=== PATIENT | female | born 1990 | race Caucasian/White ===

== ENCOUNTER 2017-01-26 12:02 | Emergency (ER) | payer BC, OTHER ==
[~2017-01-26] VITALS: Ht 167.6 cm; Wt 77.1 kg
--- NOTE | 2017-01-26 13:52 | EKG ---
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
[2017-01-26 13:55] LABS: BASO # 0.1 x10^3/uL (0.0-0.2); BASO % 1 % (0-3); EOS % 2 % (0-3); HEMATOCRIT 43.5 % (36.0-47.0); HEMOGLOBIN 15.5 g/dL (12.0-15.5); LYMPH # 1.4 x10^3/uL (1.0-4.8); LYMPH % 19 % (24-48); MEAN CORPUSCULAR HEMOGLOBIN 32 pg (25-35); MEAN CORPUSCULAR HGB CONC 36 g/dL (31-37); MEAN CORPUSCULAR VOLUME 91 fL (79-100); MONO % 8 % (0-9); NEUT % 70 % (31-73); PLATELET COUNT 261 x10^3/uL (140-400); RED CELL DISTRIBUTION WIDTH 12.9 % (11.5-14.5); WHITE BLOOD COUNT 7.4 x10^3/uL (4.0-11.0)
[2017-01-26] MEDS ORDERED: IV NORMAL SALINE 1000ML BAG 1,000 ML IV ONE (14:00)
[2017-01-26 14:15] LABS: CALCIUM 9.5 mg/dL (8.5-10.1); CREATININE 0.5 mg/dL (0.6-1.0); GFR 146.9; POTASSIUM 3.7 mmol/L (3.5-5.1)
[2017-01-26] MEDS ORDERED: ONDANSETRON PF 4 MG/2 ML VIAL. IV ONE (14:15)
[2017-01-26 14:19] LABS: BILIRUBIN,URINE NEGATIVE (NEG); GLUCOSE,URINE NEGATIVE (NEG); NITRITE,URINE NEGATIVE (NEG); PH,URINE 6.5; PROTEIN,URINE NEGATIVE (NEG-TRACE); UROBILINOGEN,URINE 0.2 mg/dL (0.2 mg/dL)
--- NOTE | 2017-01-26 14:22 | RAD ---
Exam performed: One view chest. Indication: medical workup, dizzy and passed out at work Date of Service: 01/26/2017 3:46 PM Comparison: Prior chest x-ray from 03/11/12 Single AP upright portable view chest findings: Cardiomediastinal silhouette is within limits of normal. No acute infiltrates, effusion or pneumothorax is detected. The bony structures are normal. Impression: No acute cardiopulmonary process is detected.
[2017-01-26 14:29] LABS: BACTERIA,URINE FEW /HPF (0-FEW); RBC,URINE 0 /HPF (0-2); SQUAMOUS EPITHELIAL CELL,UR MANY /LPF; WBC,URINE 0 /HPF (0-4)
[2017-01-26 15:00] VITALS: BP 109/71
--- NOTE | 2017-01-26 15:13 | PHYS DOC ---
Past Medical History Past Medical History: No Pertinent History Past Surgical History: No Surgical History Alcohol Use: None Drug Use: None Adult General Chief Complaint Chief Complaint: SYNCOPE HPI HPI 26-year-old female with no significant past medical history with a control implant now presents the emergency department after an episode of syncope. 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 She was in that environment today and started to feel lightheaded and got very sweaty. She vomited twice and then fainted. Patient states she thinks she bumped her head but she does not have a headache currently nor does she have any painful areas or swelling of her head. Denies neck pain. This was brought in by EMS and now feels improved after IV fluids. Asymptomatic on exam. No chest pain or shortness of breath. No pleuritic pain and any time. Patient has not been ill denies fevers chills or shaking chills. No prior history of syncope or arrhythmia. Denies chest pain or palpitations Review of Systems Review of Systems Constitutional: Denies fever or chills [] Eyes: Denies change in visual acuity, redness, or eye pain [] HENT: Denies nasal congestion or sore throat [] Respiratory: Denies cough or shortness of breath [] Cardiovascular: No additional information not addressed in HPI [] GI: Denies abdominal pain, nausea, vomiting, bloody stools or diarrhea [] : Denies dysuria or hematuria [] Musculoskeletal: Denies back pain or joint pain [] Integument: Denies rash or skin lesions [] Neurologic: Denies headache, focal weakness or sensory changes [] Endocrine: Denies polyuria or polydipsia [] Current Medications Current Medications Current Medications Medications (Trade) Dose Ordered Sig/Janeth Start Time Stop Time Status Last Admin Dose Admin Ondansetron HCl (Zofran) 4 mg 1X ONCE 01/26/17 14:15 01/26/17 14:16 DC 01/26/17 14:10 4 MG Sodium Chloride 1,000 ml @ 125 mls/hr 1X ONCE 01/26/17 14:00 01/26/17 21:59 01/26/17 14:10 125 MLS/HR Allergies Allergies Allergies Coded Allergies Type Severity Reaction Last Updated Verified No Known Drug Allergies 08/20/14 No Physical Exam Physical Exam Well-appearing 18-year-old female no acute distress alert and asymptomatic normocephalic and atraumatic with no scalp tenderness or swelling. Nontender C- spine with normal painless range of motion in a nonfocal neurologic exam. Remainder of exam is benign Constitutional: Well developed, well nourished, no acute distress, non-toxic appearance. [] HENT: Normocephalic, atraumatic, bilateral external ears normal, oropharynx moist, no oral exudates, nose normal. [] Eyes: PERRLA, EOMI, conjunctiva normal, no discharge. [] Neck: Normal range of motion, no tenderness, supple, no stridor. [] Cardiovascular:Heart rate regular rhythm, no murmur [] Lungs & Thorax: Bilateral breath sounds clear to auscultation [] Abdomen: Bowel sounds normal, soft, no tenderness, no masses, no pulsatile masses. [] Skin: Warm, dry, no erythema, no rash. [] Back: No tenderness, no CVA tenderness. [] Extremities: No tenderness, no cyanosis, no clubbing, ROM intact, no edema. [] Neurologic: Alert and oriented X 3, normal motor function, normal sensory function, no focal deficits noted. [] Psychologic: Affect normal, judgement normal, mood normal. [] Current Patient Data Vital Signs Vital Signs Date Time Temp Pulse Resp B/P (MAP) Pulse Ox O2 Delivery O2 Flow Rate FiO2 01/26/17 14:00 64 16 104/72 (83) 98 Room Air Lab Values Laboratory Tests Test 01/26/17 11:30 01/26/17 12:10 01/26/17 13:45 POC Urine HCG, Qualitative Hcg negative (Negative) Urine Collection Type Void Urine Color Yellow Urine Clarity Clear Urine pH 6.5 Urine Specific Castaner 1.015 Urine Protein Negative mg/dL (NEG-TRACE) Urine Glucose (UA) Negative mg/dL (NEG) Urine Ketones (Stick) Negative mg/dL (NEG) Urine Blood Negative (NEG) Urine Nitrite Negative (NEG) Urine Bilirubin Negative (NEG) Urine Urobilinogen Dipstick 0.2 mg/dL (0.2 mg/dL) Urine Leukocyte Esterase Negative (NEG) Urine RBC 0 /HPF (0-2) Urine WBC 0 /HPF (0-4) Urine Squamous Epithelial Cells Many /LPF Urine Bacteria Few /HPF (0-FEW) Urine Mucus Marked /LPF White Blood Count 7.4 x10^3/uL (4.0-11.0) Red Blood Count 4.80 x10^6/uL (3.50-5.40) Hemoglobin 15.5 g/dL (12.0-15.5) Hematocrit 43.5 % (36.0-47.0) Mean Corpuscular Volume 91 fL (79-100) Mean Corpuscular Hemoglobin 32 pg (25-35) Mean Corpuscular Hemoglobin Concent 36 g/dL (31-37) Red Cell Distribution Width 12.9 % (11.5-14.5) Platelet Count 261 x10^3/uL (140-400) Neutrophils (%) (Auto) 70 % (31-73) Lymphocytes (%) (Auto) 19 % (24-48) L Monocytes (%) (Auto) 8 % (0-9) Eosinophils (%) (Auto) 2 % (0-3) Basophils (%) (Auto) 1 % (0-3) Neutrophils # (Auto) 5.2 x10^3uL (1.8-7.7) Lymphocytes # (Auto) 1.4 x10^3/uL (1.0-4.8) Monocytes # (Auto) 0.6 x10^3/uL (0.0-1.1) Eosinophils # (Auto) 0.2 x10^3/uL (0.0-0.7) Basophils # (Auto) 0.1 x10^3/uL (0.0-0.2) Sodium Level 140 mmol/L (136-145) Potassium Level 3.7 mmol/L (3.5-5.1) Chloride Level 103 mmol/L (98-107) Carbon Dioxide Level 25 mmol/L (21-32) Anion Gap 12 (6-14) Blood Urea Nitrogen 10 mg/dL (7-20) Creatinine 0.5 mg/dL (0.6-1.0) L Estimated GFR (Cockcroft-Gault) 146.9 Glucose Level 99 mg/dL (70-99) Calcium Level 9.5 mg/dL (8.5-10.1) Troponin I Quantitative < 0.017 ng/mL (0.000-0.055) Thyroid Stimulating Hormone (TSH) 0.733 uIU/mL (0.358-3.74) Laboratory Tests 01/26/17 13:45 Laboratory Tests 01/26/17 13:45 EKG EKG Normal sinus rhythm at 68 normal axis no STEMI interpreted by me [] Radiology/Procedures Radiology/Procedures Chest x-ray no acute disease normal study interpreted by me [] Course & Med Decision Making Course & Med Decision Making Pertinent Labs and Imaging studies reviewed. (See chart for details) Signs and symptoms consistent with vasovagal syncope triggered by a warm environment. Minor head injury but no evidence of concussion or fracture. No headache and nonfocal neurologic exam. CT of the head not clinically indicated. Normal pelvis range of motion of the C-spine. Remainder of exam and workup are benign. IV fluids administered. Patient asymptomatic on reevaluation prior to discharge. No further workup or treatment indicated at this time. Patient is aware that she gets worsening headaches to return immediately for CAT scan of the head. She will follow up with PCP tomorrow and return medially for new severe or worsening symptoms [] Dragon Disclaimer Dragon Disclaimer This electronic medical record was generated, in whole or in part, using a voice recognition dictation system. Departure Departure Impression: Primary Impression: Vasovagal syncope Additional Impressions: Heat exposure Minor head injury Disposition: 01 HOME, SELF-CARE Condition: IMPROVED Referrals: ELISSA GTZ DO (PCP) Patient Instructions: Head Injury, Adult, Syncope Additional Instructions: You have experienced a vasovagal syncope today. It appears that this was precipitated by your exposure to a very warm environment in the kitchen at your work. Be sure to drink plenty of fluids in the future when you are in that warm environment,and if you feel lightheaded get out of the heat immediately, sit down, and hydrate yourself. You have also suffered a minor head injury with your episode of fainting. Given that you have no headache and your neurologic exam is normal, No further workup or treatment is indicated at this time. If you experience a worsening headache at home, return immediately for reevaluation and a CT scan of your head. Be aware that you may be prone to vasovagal episodes. Follow-up with your doctor tomorrow and return immediately for new severe or worsening symptoms. Problem Qualifiers NEGRA JUÁREZ MD Jan 26, 2017 15:13
== END 2017-01-26 15:33 | disposition home or self-care (01) ==
LOC: ER 12:02
DX: R55 Syncope and collapse (principal); S09.90XA Unspecified injury of head, initial encounter; W92.XXXA Exposure to excessive heat of man-made origin, initial encounter; Y93.G1 Activity, food preparation and clean up; Y99.0 Civilian activity done for income or pay; Y92.511 Restaurant or cafe as the place of occurrence of the external cause
CPT/HCPCS: 36415; 71010; 80048; 81001; 81025; 84443; 84484; 85025; 93005; 96361; 96374; 99285; J2405; J7030